=== PATIENT | male | born 1990 | race African-American/Black ===

== ENCOUNTER 2021-11-10 21:33 | Outpatient (REF) | payer OTHER, SELFPAY ==
[2021-11-10 23:13] LABS: C Reactive Protein* < 0.5 mg/dL (0.5-1.0)
[2021-11-10 23:36] LABS: Erythrocyte SedimentationRate* 5 mm/hr (2-15)
[2021-11-13 17:26] LABS: ANCA IFA Pattern None Detected (None Detected); ANCA IFA Titer <1:20 (<1:20); Myeloperoxidase (MPO) Ab, IgG 0 AU/mL (0-19); Serine Proteinase 3 Ab IgG 2 AU/mL (0-19)
== END 2021-11-10 21:34 | disposition home or self-care (01) ==
LOC: NPINS 21:33
PROVIDERS: PCP Family Medicine
DX: H05.9 Unspecified disorder of orbit (principal)
CPT/HCPCS: 82164; 83516; 85651; 86039; 86140; 86255